=== PATIENT | male | born 2005 | race African-American/Black ===

== ENCOUNTER 2024-06-18 04:48 | Inpatient (IN) | payer MEDICAID ==
[~2024-06-18] VITALS: Ht 185.4 cm; Wt 68.7 kg
[2024-06-18] MEDS ORDERED: ZOLPIDEM TARTRATE 10 MG TABLET PO PRN (06:15)
[2024-06-19] VITALS (7 sets, daily range): BP systolic 122–151; BP diastolic 70–86; PULSE 72–90; RESP 17–20; TEMP 97.1–97.9; O2SAT 97–99
[2024-06-19] MEDS: LORazepam 2 MG TABLET PO PRN (08:42)
[2024-06-19] MEDS: HALOPERIDOL 5 MG TABLET PO PRN (08:42)
[2024-06-19] MEDS: FAMOTIDINE 20 MG TABLET PO SCH (09:40)
[2024-06-19] MEDS: SERTRALINE HCL 50 MG TABLET PO SCH (10:17)
[2024-06-19] MEDS: ONDANSETRON HCL 4 MG TABLET PO PRN (16:40)
[2024-06-19] MEDS: PANTOPRAZOLE SODIUM 40 MG DR TABLET PO SCH (18:01)
[2024-06-20] MEDS: IBUPROFEN 400 MG TABLET PO PRN (08:01)
[2024-06-20 08:16] VITALS: BP 137/75; PULSE 65; RESP 18; TEMP 97.9; O2SAT 97
[2024-06-20 09:51] LABS: APPEARANCE,URINE TURBID (CLEAR); BILIRUBIN,URINE NEGATIVE (NEGATIVE); GLUCOSE, URINE (UA) NEGATIVE (NEGATIVE); KETONES,URINE 80-100 mg/dL (NEGATIVE); LEUKOCYTE ESTERASE ,URINE NEGATIVE (NEGATIVE); NITRATE,URINE NEGATIVE (NEGATIVE); OCCULT BLOOD,URINE NEGATIVE (NEGATIVE); PROTEIN,URINE 30-70 mg/dL (NEGATIVE); SPECIFIC GRAVITIY, URINE 1.032 (1.003-1.030); UROBILINOGEN,URINE <=1.0 mg/dL (<=1.0)
[2024-06-20 09:52] LABS: COLOR,URINE YELLOW (YELLOW)
[2024-06-20 09:59] LABS: ALCOHOL, URINE DRUG SCREEN NEGATIVE (NEGATIVE); AMPHET/METH SCREEN,URINE NEGATIVE (NEGATIVE); BARBITURATE SCREEN, URINE NEGATIVE (NEGATIVE); BENZODIAZEPINES SCREEN,URINE NEGATIVE (NEGATIVE); CANNABINOID SCREEN,URINE POSITIVE (NEGATIVE); COCAINE SCREEN,URINE NEGATIVE (NEGATIVE); METHADONE SCREEN, URINE NEGATIVE (NEGATIVE); OPIATE SCREEN,URINE NEGATIVE (NEGATIVE); PHENCYCLIDINE SCREEN,URINE NEGATIVE (NEGATIVE)
[2024-06-20 20:04] VITALS: BP 126/81; PULSE 74; RESP 18; TEMP 97.3; O2SAT 99
[2024-06-20] MEDS ORDERED: SERT-158 PO (21:03)
== END 2024-06-21 01:20 | disposition left against medical advice (07) | DRG 751 ==
LOC: B3A 22:16
PROVIDERS: ADMIT Psychiatry & Neurology Psychiatry; ATTEND Psychiatry & Neurology Psychiatry
PROC: GZHZZZZ Group Psychotherapy (ICD-10-PCS; principal; 2024-06-19)
PROC: GZ52ZZZ Individual Psychotherapy, Cognitive (ICD-10-PCS; 2024-06-19)
DX: F33.2 Major depressive disorder, recurrent severe without psychotic features (principal); R45.851 Suicidal ideations; Z53.29 Procedure and treatment not carried out because of patient's decision for other reasons; K21.9 Gastro-esophageal reflux disease without esophagitis; F12.10 Cannabis abuse, uncomplicated; M94.0 Chondrocostal junction syndrome [Tietze]; Z79.899 Other long term (current) drug therapy; Z91.51 Personal history of suicidal behavior; Z59.00 Homelessness unspecified; Z91.018 Allergy to other foods
CPT/HCPCS: 80307; 81003; Q0162

== ENCOUNTER 2024-06-18 17:33 | Emergency (ER) | payer MEDICAID ==
[~2024-06-18] VITALS: Ht 175.3 cm; Wt 68.2 kg
[2024-06-18 18:09] VITALS: TEMP 98.2
[2024-06-18 18:30] LABS: ANION GAP 8 mmol/L (8-16); CALCIUM, TOTAL 8.6 mg/dL (8.8-10.5); CARBON DIOXIDE 28 mmol/L (22-29); CHLORIDE 102 mmol/L (98-107); CREATININE 1.09 mg/dL (0.60-1.30); GLOMERULAR FILTR. RATE CALC > 60 mL/min (>60); GLUCOSE,RANDOM 86 mg/dL (70-110); POTASSIUM 3.4 mmol/L (3.5-5.1); SODIUM SERUM 138 mmol/L (136-145); UREA NITROGEN, BLOOD 10 mg/dL (7-18)
[2024-06-18 18:35] LABS: ALCOHOL, BLOOD (SERUM) < 3 mg/dL (0-10)
[2024-06-18 18:38] LABS: BASOPHILS % (AUTO) 0.4 % (0.0-2.0); EOSINOPHILS % (AUTO) 0.3 % (1.0-6.0); HEMATOCRIT 44.5 % (41-53); HEMOGLOBIN 14.8 g/dL (13.5-17.5); LYMPHOCYTES # (AUTO) 2.1 K/uL (1.0-4.8); LYMPHOCYTES % (AUTO) 23.6 % (22.0-44.0); MEAN CORPUSCULAR HEMOGLOBIN 30.9 pg (26.0-34.0); MEAN CORPUSCULAR HGB CONC 33.2 G/dL (31.0-37.0); MEAN CORPUSCULAR VOLUME 93 fL (80-100); MONOCYTES # (AUTO) 0.8 K/uL (0.1-1.0); MONOCYTES % (AUTO) 9.4 % (2.0-9.0); NEUTROPHILS # (AUTO) 5.9 K/uL (1.8-7.7); NEUTROPHILS % (AUTO) 66.3 % (40.0-70.0); PLATELET COUNT (AUTO) 231 K/uL (150-450); RED BLOOD CELL COUNT(AUTO) 4.78 MIL/uL (4.50-5.90); RED CELL DISTRIBUTION WIDTH 13.3 % (11.5-14.5); WHITE BLOOD COUNT (AUTO) 8.9 K/uL (4.5-11.0)
[2024-06-18 18:45] LABS: COVID AG,FIA SOURCE NASAL SWAB
[2024-06-18 19:08] LABS: SARS-COV2 (COVID) ANTIGEN,FIA Negative (Negative)
[2024-06-18 21:14] VITALS: BP 146/65; PULSE 57; RESP 16
[2024-06-19] MEDS: POTASSIUM CHLORIDE 20 MEQ ER TABLET PO ONE (00:57)
[2024-06-20] MEDS ORDERED: SERT-158 PO (21:03)
== END 2024-06-19 00:58 | disposition admitted as inpatient to this hospital (09) ==
LOC: EMS 17:33
DX: F32.9 Major depressive disorder, single episode, unspecified (principal); E87.6 Hypokalemia; F41.9 Anxiety disorder, unspecified; F32.A Depression, unspecified; F12.90 Cannabis use, unspecified, uncomplicated; Z91.018 Allergy to other foods; Z20.822 Contact with and (suspected) exposure to COVID-19
CPT/HCPCS: 99285; 87426; 80048; 85025; 36415; G0480

== ENCOUNTER 2024-06-19 23:17 | Emergency (ER) | payer MEDICAID ==
[~2024-06-19] VITALS: Ht 185.4 cm; Wt 68.6 kg
[2024-06-20] MEDS: ONDANSETRON HCL 4 MG TABLET PO ONE
[2024-06-20] MEDS: PB/HYOSCY/ATR/SCOP/LIDO/MAALOX 55 ML BOTTLE PO ONE
[2024-06-20 00:14] LABS: BASOPHILS % (AUTO) 0.2 % (0.0-2.0); EOSINOPHILS % (AUTO) 0.2 % (1.0-6.0); HEMATOCRIT 46.2 % (41-53); HEMOGLOBIN 15.5 g/dL (13.5-17.5); LYMPHOCYTES # (AUTO) 1.1 K/uL (1.0-4.8); LYMPHOCYTES % (AUTO) 9.7 % (22.0-44.0); MEAN CORPUSCULAR HEMOGLOBIN 30.7 pg (26.0-34.0); MEAN CORPUSCULAR HGB CONC 33.5 G/dL (31.0-37.0); MEAN CORPUSCULAR VOLUME 92 fL (80-100); MONOCYTES # (AUTO) 0.7 K/uL (0.1-1.0); MONOCYTES % (AUTO) 6.1 % (2.0-9.0); NEUTROPHILS # (AUTO) 9.5 K/uL (1.8-7.7); NEUTROPHILS % (AUTO) 83.8 % (40.0-70.0); PLATELET COUNT (AUTO) 259 K/uL (150-450); RED BLOOD CELL COUNT(AUTO) 5.05 MIL/uL (4.50-5.90); RED CELL DISTRIBUTION WIDTH 13.5 % (11.5-14.5); WHITE BLOOD COUNT (AUTO) 11.3 K/uL (4.5-11.0)
[2024-06-20 00:17] VITALS: TEMP 98.5
[2024-06-20 00:24] LABS: ANION GAP 13 mmol/L (8-16); CALCIUM, TOTAL 9.5 mg/dL (8.8-10.5); CARBON DIOXIDE 24 mmol/L (22-29); CHLORIDE 98 mmol/L (98-107); CREATININE 1.11 mg/dL (0.60-1.30); GLOMERULAR FILTR. RATE CALC > 60 mL/min (>60); GLUCOSE,RANDOM 116 mg/dL (70-110); POTASSIUM 3.7 mmol/L (3.5-5.1); SODIUM SERUM 135 mmol/L (136-145); UREA NITROGEN, BLOOD 12 mg/dL (7-18)
[2024-06-20] MEDS: DICYCLOMINE HCL 10 MG/ML 2 ML VIAL IM ONE (00:25)
[2024-06-20 00:29] LABS: ALANINE AMINOTRANSFERASE 56 U/L (12-78); ALBUMIN 4.4 g/dL (3.4-5.0); ALKALINE PHOSPHATASE 81 U/L (46-116); ASPARTATE AMINOTRANSFERASE 73 U/L (15-37); BILIRUBIN,TOTAL 0.5 mg/dL (0.1-1.0); LIPASE 17 U/L (16-77); TOTAL PROTEIN, SERUM 8.4 g/dL (6.4-8.2)
[2024-06-20] MEDS: ONDANSETRON HCL 4 MG/2 ML VIAL IM ONE (00:43)
[2024-06-20 01:12] LABS: APPEARANCE,URINE CLEAR (CLEAR); BILIRUBIN,URINE NEGATIVE (NEGATIVE); COLOR,URINE YELLOW (YELLOW); GLUCOSE, URINE (UA) NEGATIVE (NEGATIVE); KETONES,URINE =>150 mg/dL (NEGATIVE); LEUKOCYTE ESTERASE ,URINE NEGATIVE (NEGATIVE); NITRATE,URINE NEGATIVE (NEGATIVE); OCCULT BLOOD,URINE NEGATIVE (NEGATIVE); PROTEIN,URINE 30-70 mg/dL (NEGATIVE); SPECIFIC GRAVITIY, URINE 1.034 (1.003-1.030); UROBILINOGEN,URINE <=1.0 mg/dL (<=1.0)
[2024-06-20 01:26] LABS: BACTERIA,URINE None Seen /HPF (None Seen); RBC,URINE None Seen /HPF (0-2); SQUAMOUS EPITHELIAL CELL,UR Few /LPF (None Seen); WBC,URINE None Seen /HPF (0-5)
[2024-06-20 06:54] VITALS: BP 137/77; PULSE 71; RESP 18
[2024-06-20] MEDS ORDERED: SERT-158 PO (21:03)
== END 2024-06-20 06:55 | disposition home or self-care (01) ==
LOC: EMS 23:18
DX: F32.9 Major depressive disorder, single episode, unspecified (principal); R11.2 Nausea with vomiting, unspecified; R10.32 Left lower quadrant pain; F41.9 Anxiety disorder, unspecified; F32.A Depression, unspecified; F12.90 Cannabis use, unspecified, uncomplicated; Z91.018 Allergy to other foods
CPT/HCPCS: 99285; 80048; 80076; 81001; 83690; 85025; 36415; 74176; Q0162 ×2; J0500; J2405